=== PATIENT | female | born 1985 | race Caucasian/White ===

== ENCOUNTER 2018-06-23 03:08 | Emergency (ER) | payer OTHER ==
[~2018-06-23] VITALS: Ht 149.9 cm; Wt 51.0 kg
[2018-06-23 03:08] VITALS: BP 121/82
--- NOTE | 2018-06-23 03:15 | NUR ---
PT PRESENTS TO ED WITH C/O HEADACHE S/P FALL TODAY. ADMITS TO ETOH, PT FELL FORWARD TO CONCRETE, SMALL HEMATOMA TO RT FOREHEAD. REPORTS N/V, DENIES LOC. PT IS ALERT TO NAME, BIRTHDAY, PLACE, AND EVENT. NO BLOOD OR ANY OBVIOUS DEFORMITY NOTED TO OTHER BODY PARTS. PT PLACED IN GOWN AND PLACED IN BED WITH SIDERAILS RAISED. VSS. PENDING MD MUNSON.
--- NOTE | 2018-06-23 03:30 | NUR ---
PT UNABLE TO VOID AT THIS TIME
[2018-06-23] MEDS ORDERED: IBUPROFEN 600 MG TAB PO ONE (04:40)
--- NOTE | 2018-06-23 04:55 | NUR ---
PT AMBULATED TO BATHROOM AT THIS TIME.
--- NOTE | 2018-06-23 05:06 | NUR ---
PT TAKEN TO CT VIA WHEELCHAIR AT THIS TIME
--- NOTE | 2018-06-23 05:25 | NUR ---
PT BACK FROM CT VIA W/C [id number] WITH REGISTERED NURSING PROFESSOR
--- NOTE | 2018-06-23 06:03 | NUR ---
AWAITING DISCHARGE ORDERS FROM DR NEWMAN AT THIS TIME.
--- NOTE | 2018-06-23 06:03 | NUR ---
Jericho beckwith in [facility] - 06/23/18 at 0614 by JUANITA AWAITING DISCHARGE ORDERS FROM DR HERBERT AT THIS TIME.
[2018-06-23] MEDS ORDERED: ACETAMINOPHEN EXTRA STRENGTH 500 MG TAB PO ONE (06:05)
[2018-06-23 07:01] VITALS: BP 119/75
--- NOTE | 2018-06-23 07:03 | NUR ---
Patient discharged with v/s stable. Written and verbal after care instructions given and explained. Patient alert, oriented and verbalized understanding of instructions. Ambulatory with steady gait. All questions addressed prior to discharge. ID band removed. Patient advised to follow up with PMD. Rx of NORCO 5MG-325MG,IBU 600 given. Patient educated on indication of medication including possible reaction and side effects. Opportunity to ask questions provided and answered.
== END 2018-06-23 07:01 | disposition home or self-care (01) ==
LOC: MED 03:08
DX: S05.11XA Contusion of eyeball and orbital tissues, right eye, initial encounter (principal); W18.39XA Other fall on same level, initial encounter; Y93.89 Activity, other specified; Y92.89 Other specified places as the place of occurrence of the external cause; Y99.8 Other external cause status
CPT/HCPCS: 70450; 72125; 73030; 81025; 99284